=== PATIENT | female | born 1960 | race Caucasian/White ===

== ENCOUNTER 2019-03-20 18:15 | Emergency (ER) | payer OTHER ==
[2019-03-20 18:41] VITALS: BP 130/76; PULSE 90; TEMP 98.2; BMI 22.3
--- NOTE | 2019-03-21 07:24 | PDOC ---
Documentation entered by Angel Rosas SCRIBE, acting as scribe for Jed Guerrero MD. Jed Mason MD: This documentation has been prepared by the Ralph nye Nirvannie, SCRIBE, under my direction and personally reviewed by me in its entirety. I confirm that the documentation accurately reflects all work, treatment, procedures, and medical decision making performed by me. History of Present Illness - General Chief Complaint: Injury Stated Complaint: LEFT EAR PAIN Time Seen by Provider: 03/20/19 18:33 History Source: Patient Exam Limitations: No Limitations - History of Present Illness Initial Comments: 03/20/19 19:09 The patient is a 58 year old female, with a significant past medical history of HTN, who presents to the emergency department with 3 weeks of cold-like symptoms. As per patient, she was recently treated for a cough, sore throat, ear congestion, and nasal congestion with a z-pack by her PCP Dr. Blackburn associate. She notes her last dosage was yesterday but, she has been experiencing persistent ear congestion described as a crackling sensation and a sore throat which she notes gargling with salt/water and peroxide, without relief. Patient has been taking Tylenol and Benadryl for her symptoms, without relief. She denies recent nausea, vomit, diarrhea or constipation. She denies recent dysuria, frequency, urgency or hematuria. She denies recent chest pain or shortness of breath. Allergies: NKDA Past surgical history: None reported. Social history: Smoker. Denies excessive EtOH use or recreational drug use. Familial History: Reviewed and noncontributory. Primary Care Physician: Dr. Hwang 03/21/19 07:20 PE: Alert oriented no acute distress cheerful and cooperative Afebrile, vital signs stable HEENT: Conjunctivae, nose, throat clear. Right TM normal. Left TM mildly retracted, translucent, without erythema or opacity Neck supple without bruit mass or nodes Lungs clear with full breath sounds bilaterally, no wheezes rales or rhonchi CV regular without murmur rub or gallop Abdomen benign Skin clear, no rash, adequate turgor and wet mucous membranes Impression: Status post URI, finished a course of azithromycin yesterday, residual eustachian tube dysfunction Plan: Reassure that there appears to be no ear infection. Decongestants, analgesics, follow-up ENT if no improvement. Fully ambulatory and in no significant pain or other distress at discharge with family to follow-up as directed Past History - Past Medical History Allergies/Adverse Reactions: Allergies Allergy/AdvReac Type Severity Reaction Status Date / Time No Known Allergies Allergy Verified 03/20/19 18:17 Home Medications: Ambulatory Orders Aspirin [Aspirin EC] 81 mg PO DAILY 03/20/19 Levocetirizine Dihydrochloride [Xyzal] 5 mg PO DAILY #14 tablet 03/20/19 Lisinopril 10 mg PO DAILY 03/20/19 Neomycin/Polymyxn/Hc [Cortisporin Otic Suspenstion -] 3 drop Q4HWA #1 bottle 03/20/19 Omeprazole 20 mg PO DAILY 03/20/19 COPD: No HTN: Yes - Psycho Social/Smoking Cessation Hx Smoking History: Never smoked Have you smoked in the past 12 months: No Information on smoking cessation initiated: No Hx Alcohol Use: No Drug/Substance Use Hx: No Review of Systems - Review of Systems Able to Perform ROS?: Yes Comments:: 03/20/19 19:09 CONSTITUTIONAL: Absent: fever, no chills, no fatigue EYES: Absent: visual changes ENT: Present ear pain, sore throat CARDIOVASCULAR: Absent: chest pain, no palpitations RESPIRATORY: Present: Cough Absent: no SOB GI: Absent: abdominal pain, no nausea, no vomiting, no constipation, no diarrhea GENITOURINARY: Absent: dysuria, no frequency, no hematuria MUSKULOSKELETAL: Absent: back pain, no arthralgia, no myalgia SKIN: Absent: rash NEURO: Absent: headache All Other Systems: Reviewed and Negative *Physical Exam - Vital Signs Last Vital Signs Temp Pulse Resp BP Pulse Ox 98.2 F 90 20 130/76 97 03/20/19 18:16 03/20/19 18:16 03/20/19 18:16 03/20/19 18:16 03/20/19 18:16 Discharge - Discharge Information Problems reviewed: Yes Clinical Impression/Diagnosis: Eustachian tube dysfunction Qualifiers: Laterality: left Qualified Code(s): H69.82 - Other specified disorders of Eustachian tube, left ear Condition: Stable Disposition: HOME - Admission No - Additional Discharge Information Prescriptions: Levocetirizine Dihydrochloride [Xyzal] 5 mg PO DAILY #14 tablet Neomycin/Polymyxn/Hc [Cortisporin Otic Suspenstion -] 3 drop Q4HWA #1 bottle - Follow up/Referral - Patient Discharge Instructions Patient Printed Discharge Instructions: DI for Eustachian Tube Dysfunction- Adult Additional Instructions: Gargle only with warm salt water as needed. eardrops and oral antihistamine/ decongestant as directed. Try not to smoke until your condition has resolved. ENT specialist if no improvement. - Post Discharge Activity
== END 2019-03-20 19:32 | disposition home or self-care (01) ==
LOC: FER 18:15
DX: H69.82 Other specified disorders of Eustachian tube, left ear (principal); I10 Essential (primary) hypertension
CPT/HCPCS: 99283-25

== ENCOUNTER 2023-07-07 12:02 | Emergency (ER) | payer OTHER ==
[2023-07-07 12:13] VITALS: BP 147/76; PULSE 105; RESP 17; TEMP 98; BMI 23.4
== END 2023-07-07 14:46 | disposition home or self-care (01) ==
LOC: JER 12:02 → JERFT 12:02 → JER 14:46
DX: R19.7 Diarrhea, unspecified (principal); R21 Rash and other nonspecific skin eruption; T36.8X5A Adverse effect of other systemic antibiotics, initial encounter; T37.8X5A Adverse effect of other specified systemic anti-infectives and antiparasitics, initial encounter
CPT/HCPCS: 87045; 87046; 87209; 87324; 87449; 99283-25